=== PATIENT | male | born 1980 | race Asian ===

== ENCOUNTER → 2024-09-19 09:17 | Outpatient (CLI) | payer OTHER, SELFPAY ==
--- NOTE | 2024-09-19 09:19 | DI.MRI.S_ITS ---
PROCEDURE: MR LUMBAR SPINE WO CON INDICATIONS: low back pain TECHNIQUE: Noncontrast sagittal T1 spin echo and T2 fast echo, sagittal STIR, and T2 fast spin echo through the lumbar spine. In cases with scoliosis, additional coronal T2 fast spin echo may be performed. COMPARISON: None. FINDINGS: Image quality: Excellent. Alignment and Curvature: No plain films are available for comparison, for numbering purposes. Thus, for the purposes of this examination, 5 lumbar type vertebral bodies will be presumed, as denoted on the montage panel. This should be confirmed and correlated with plain films, prior to any lumbar spinal intervention. Bone Marrow: Marrow is of normal overall signal. No acute vertebral body compression fractures. Spinal Cord: Conus medullaris terminates at the mid L1 level. Visualized cord demonstrates normal signal and size. Paraspinous Soft Tissues: No paravertebral masses. T12-L1: Normal appearance. L1-L2: Normal appearance. L2-L3: Mild disc desiccation and diffuse disc bulge. Mild bilateral facet hypertrophy. Mild epidural lipomatosis. Mild canal stenosis. Mild bilateral foraminal stenosis. L3-L4: Normal appearance. L4-L5: Mild disc desiccation and diffuse disc bulge. Mild bilateral facet hypertrophy. Mild canal stenosis. Moderate left and mild right foraminal stenosis. L5-S1: Normal appearance. IMPRESSION: 1. Multilevel degenerative disc and facet disease. 2. Mild multilevel canal stenosis. 3. Multilevel mild and moderate foraminal stenoses as described above. No evidence of neural impingement. Dictated by: Emma Duran M.D. on 09/19/2024 at 12:41 Approved by: Emma Duran M.D. on 09/19/2024 at 12:43
== END ==
DX: M51.369 Other intervertebral disc degeneration, lumbar region without mention of lumbar back pain or lower extremity pain (principal); M48.061 Spinal stenosis, lumbar region without neurogenic claudication; M47.816 Spondylosis without myelopathy or radiculopathy, lumbar region; M54.50 Low back pain, unspecified
CPT/HCPCS: 72148

== ENCOUNTER 2025-02-23 11:49 | Emergency (ER) | payer OTHER, SELFPAY ==
[2025-02-23] VITALS (7 sets, daily range): BP systolic 132–212; BP diastolic 76–119; PULSE 81–90; RESP 16–20; TEMP 37; O2SAT 95–99; BMI 28.7
--- NOTE | 2025-02-23 12:23 | ED_ITS ---
HPI - Headache <Shari Cai PA-C - Last Filed: 02/23/25 18:24> General Chief Complaint: Headache Stated Complaint: headache Time Seen by Provider: 02/23/25 11:58 Mode of arrival: EMS History of Present Illness HPI Narrative: This is a 44-year-old male with Mandarin as 1st language who reports history of chronic low back pain related to an injury a year ago presenting today with concern for a headache that has been present since Wednesday afternoon. Patient states on Wednesday he was doing a job cutting some furniture outside using power tools he was not wearing a mask or eye protection. He does think it is possible he got some dust in his eyes and he states he was driving to [place] later that day and he felt like it was hard to get a full breath in for awhile and there was something constricting his breathing. This improved with rolling down the window and did not return although he states he has had a cough all week since. He also notes that his headache has been constant but sometimes worse up to a 9/10 currently a 6/10. He describes it as a global headache but more in the front and is worse with movement such as leaning forward, sometimes having a sensation of liquid moving. He also states that he has had some tingling in his fingers only his thumb 1st and middle finger of the right hand since Wednesday evening as well. Yesterday and the day prior their were a few times when he noticed some ?squiggly lines in his vision up close but his distance vision was not affected. This did not persist or return and he denies other vision changes. He also states that he had dental surgery in his right lower jaw on Wednesday and they were hesitant to do the surgery because his blood pressure was elevated into the 160s systolic. They ended up using a different numbing medication than they had originally planned and proceeded with the surgery. He states he had his 2nd dental surgery scheduled on , yesterday and had a cap placed on his tooth, but also describes having a screw placed deep into his jaw but states that they left the tooth itself in place he does state that his headache worsened after his 1st surgery on Wednesday. Patient does endorse he has had a mild cough all week and also states that Wednesday and Wednesday at night he was having to blow his nose and had a lot of thick mucus coming out. Patient presented to the walk-in clinic at [facility] yesterday where he was treated with 1 g of Tylenol and Toradol he states his headache did improve but returned in the middle of the night much worse. He has not taken any medicine since. He had 1 episode of vomiting today. He also denies chest pain, shortness of breath, productive cough, one-sided weakness, gait change, speech change, sore throat, ear pain or other symptoms. Related Data Previous Rx's ?Medication ?Instructions ?Recorded amoxicillin 875 mg-potassium 1 tab PO Q12H bacterial s inusitis 02/23/25 clavulanate 125 mg tablet 10 days #20 tabs lisinopril 10 mg tablet 10 mg PO DAILY new onset HTN 30 02/23/25 days #30 tabs Allergies Allergy/AdvReac Type Severity Reaction Status Date / Time No Known Drug Allergies Allergy Verified 02/23/25 12:04 Review of Systems <Shari Cai PA-C - Last Filed: 02/23/25 18:24> Review of Systems Narrative: See HPI Patient History <Shari Cai PA-C - Last Filed: 02/23/25 18:24> Social History Smoking Status: Never smoker Smoking Status: Never smoker Exam <Shari Cai PA-C - Last Filed: 02/23/25 18:24> Narrative Exam Narrative: GENERAL: [44] year old patient appears stated age. Well-developed patient, in mild distress, slightly anxious/uncomfortable appearing. HEAD: Atraumatic. Normocephalic. EYES: Pupils equal round and reactive. Extraocular motions intact and pain-free. No scleral icterus. No injection or drainage. ENT: Nose without bleeding, purulent drainage. There is mild erythema of the left ear canal. Throat without erythema, tonsillar hypertrophy or exudate, uvula is midline. Airway patent. Bilateral frontal and maxillary sinuses are tender to percussion most pronounced over the frontal sinuses and left maxillary. NECK: Trachea midline. Non tender CARDIOVASCULAR: Regular rate and rhythm without murmurs, gallops, or rubs. RESPIRATORY: Clear to auscultation. Breath sounds equal bilaterally. No wheezes, rales, or rhonchi. GASTROINTESTINAL: Abdomen soft, non-tender, nondistended. EXTREMITIES: No edema or joint tenderness. BACK: Nontender without deformity or crepitance. No flank tenderness. NEURO: AOx3. 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 SKIN: No rash or erythema of visible areas Initial Vital Signs Initial Vital Signs: Vital Signs Pulse Rate 88 02/23/25 12:04 Respiratory Rate 18 02/23/25 12:04 Blood Pressure 170/107 H 02/23/25 12:04 Pulse Oximetry 99 02/23/25 12:04 Oxygen Delivery Method Room Air 02/23/25 12:04 <Shani Diggs MD - Last Filed: 02/23/25 18:42> Initial Vital Signs Initial Vital Signs: Vital Signs Pulse Rate 88 02/23/25 12:04 Respiratory Rate 18 02/23/25 12:04 Blood Pressure 170/107 H 02/23/25 12:04 Pulse Oximetry 99 02/23/25 12:04 Oxygen Delivery Method Room Air 02/23/25 12:04 Scores <Shari Cai PA-C - Last Filed: 02/23/25 18:24> HEART Score Heart Score history: Slightly Suspicious Heart Score EKG: Normal Heart Score Age: < 45 years old Heart Score risk factors: 1-2 risk factors Heart Score troponin: < or = to normal limit Heart Score Total: 1 <Shani Diggs MD - Last Filed: 02/23/25 18:42> HEART Score Heart Score Total: 1 Course <Shari Cai PA-C - Last Filed: 02/23/25 18:24> Course Course Narrative: I spoke with the attending physician regarding this patient and despite his improvement in blood pressure since he came in she does recommend a head CT. Concerned for hypertensive urgency. Noncontrast head CT ordered. 1244 IOPs 15 on the R eye and a4 on the L eye. Fluorescein exam without uptake or abrasion seen 1305 Spoke with the patient again and shared CT results and lab results. He is agreeable with plan to start antihypertensive and antibiotics for sinus infection. 1435 Orders Ordered: ED Orders 02/23/25 12:16 Complete Blood Count AUTO DIFF Stat Comprehensive Metabolic Panel Stat NT-proBNP (BNP-Adult 18+) Stat Troponin I Stat 02/23/25 12:21 Covid-19 + FLU A/B + RSV - PCR Stat 02/23/25 12:29 XR chest 1V Stat [facility] Creatine Kinase MB Routine 02/23/25 12:32 EKG-12 Lead Routine 02/23/25 12:43 CT head/brain wo con Stat 02/23/25 15:01 Urinalysis and Microscopic Stat Discontinued Medications Acetaminophen (Acetaminophen 325 Mg Tablet) 975 mg PO NOW ONE Stop: 02/23/25 13:07 Last Admin: 02/23/25 13:11 Dose: 975 mg Documented By: HANANE Dexamethasone (Dexamethasone 10 Mg/Ml Vial) 10 mg PO NOW ONE Stop: 02/23/25 14:40 Last Admin: 02/23/25 14:47 Dose: 10 mg Documented By: MONSTER Fluorescein Sodium (Fluorescein 1 Mg Strip) 1 mg EYE-BOTH NOW ONE Stop: 02/23/25 12:49 Last Admin: 02/23/25 12:54 Dose: 1 mg Documented By: HANANE Lisinopril (Lisinopril 10 Mg Tablet) 10 mg PO NOW ONE Stop: 02/23/25 14:42 Last Admin: 02/23/25 14:48 Dose: 10 mg Documented By: MONSTER Proparacaine HCl (Proparacaine 0.5% Ophth Dorene) 1 drops EYE-BOTH NOW ONE Stop: 02/23/25 12:33 Last Admin: 02/23/25 12:54 Dose: 1 drops Documented By: HANANE Vital Signs Vital signs: Vital Signs - 8 hr 02/23/25 12:04 02/23/25 12:23 02/23/25 12:43 Temperature 98.6 F Pulse Rate 88 83 82 Respiratory Rate 18 16 Blood Pressure 170/107 H 154/101 H 157/104 H Pulse Oximetry 99 97 97 Oxygen Delivery Method Room Air 02/23/25 13:12 02/23/25 13:12 02/23/25 14:48 Temperature Pulse Rate 84 90 81 Respiratory Rate 18 Blood Pressure 152/83 H 212/119 H 174/119 H Pulse Oximetry 97 Oxygen Delivery Method 02/23/25 14:50 02/23/25 15:15 Temperature Pulse Rate 82 85 Respiratory Rate 20 16 Blood Pressure 182/110 H 132/76 Pulse Oximetry 97 95 Oxygen Delivery Method Room Air Room Air <Shani Diggs MD - Last Filed: 02/23/25 18:42> Orders Ordered: ED Orders 02/23/25 12:16 Complete Blood Count AUTO DIFF Stat Comprehensive Metabolic Panel Stat NT-proBNP (BNP-Adult 18+) Stat Troponin I Stat 02/23/25 12:21 Covid-19 + FLU A/B + RSV - PCR Stat 02/23/25 12:29 XR chest 1V Stat [facility] Creatine Kinase MB Routine 02/23/25 12:32 EKG-12 Lead Routine 02/23/25 12:43 CT head/brain wo con Stat 02/23/25 15:01 Urinalysis and Microscopic Stat Discontinued Medications Acetaminophen (Acetaminophen 325 Mg Tablet) 975 mg PO NOW ONE Stop: 02/23/25 13:07 Last Admin: 02/23/25 13:11 Dose: 975 mg Documented By: HANANE Dexamethasone (Dexamethasone 10 Mg/Ml Vial) 10 mg PO NOW ONE Stop: 02/23/25 14:40 Last Admin: 02/23/25 14:47 Dose: 10 mg Documented By: MONSTER Fluorescein Sodium (Fluorescein 1 Mg Strip) 1 mg EYE-BOTH NOW ONE Stop: 02/23/25 12:49 Last Admin: 02/23/25 12:54 Dose: 1 mg Documented By: HANANE Lisinopril (Lisinopril 10 Mg Tablet) 10 mg PO NOW ONE Stop: 02/23/25 14:42 Last Admin: 02/23/25 14:48 Dose: 10 mg Documented By: MONSTER Proparacaine HCl (Proparacaine 0.5% Ophth Dorene) 1 drops EYE-BOTH NOW ONE Stop: 02/23/25 12:33 Last Admin: 02/23/25 12:54 Dose: 1 drops Documented By: HANANE Vital Signs Vital signs: Vital Signs - 8 hr 02/23/25 12:04 02/23/25 12:23 02/23/25 12:43 Temperature 98.6 F Pulse Rate 88 83 82 Respiratory Rate 18 16 Blood Pressure 170/107 H 154/101 H 157/104 H Pulse Oximetry 99 97 97 Oxygen Delivery Method Room Air 02/23/25 13:12 02/23/25 13:12 02/23/25 14:48 Temperature Pulse Rate 84 90 81 Respiratory Rate 18 Blood Pressure 152/83 H 212/119 H 174/119 H Pulse Oximetry 97 Oxygen Delivery Method 02/23/25 14:50 02/23/25 15:15 Temperature Pulse Rate 82 85 Respiratory Rate 20 16 Blood Pressure 182/110 H 132/76 Pulse Oximetry 97 95 Oxygen Delivery Method Room Air Room Air MDM - Headache <Shari Cai PA-C - Last Filed: 02/23/25 18:24> Differential Diagnosis Differential diagnosis: Likely migraine, tension headache, headache, sinusitis and other (hypertensive urgency, new onset hypertension) Medical Records Attestation: I reviewed the patient's medical records. Lab Data Attestation: I reviewed the patient's lab results. 02/23/25 12:16 02/23/25 12:16 Labs: Lab Results 02/23/25 02/23/25 02/23/25 Range/Units 12:16 12:21 15:01 WBC 4.3 L (4.5-11.0) X10^3/uL RBC 5.63 (4.5-5.9) X10^6/uL Hgb 16.2 (13.5-17.5) g/dL Hct 48.1 (41-53) % MCV 85.4 (80-100) fL MCH 28.7 (26-34) PG MCHC 33.6 (30-36) % RDW 13.0 (11.6-14.8) % Plt Count 222 (150-400) X10^3/uL Neut % (Auto) 53.3 (50-75) % Lymph % (Auto) 35.5 (25-40) % [place] % (Auto) 7.6 (3-14) % Eos % (Auto) 2.7 (2-4) % Baso % (Auto) 0.9 (0-2) % Neut # (Auto) 2300 (5217-7596) /uL Lymph # (Auto) 1500 (8917-0387) /uL [place] # (Auto) 300 (0-900) /uL Eos # (Auto) 100 (0-450) /uL Baso # (Auto) 0 (0-100) /uL Sodium 139 (137-145) mmol/L Potassium 3.9 (3.4-5.1) mmol/L Chloride 104 (98-107) mmol/L Carbon Dioxide 23 (22-32) mmol/L BUN 17 (9-20) mg/dL Creatinine 1.11 (0.66-1.25) mg/dL Estimated GFR > 60 (>60) mL/min BUN/Creatinine Ratio 15.3 (6-22) Glucose 108 H (70-99) mg/dL Calcium 9.5 (8.4-10.2) mg/dL Total Bilirubin 0.6 (0.2-1.3) mg/dL AST 33 (17-59) IU/L ALT 32 (<50) IU/L Alkaline Phosphatase 68 (38-126) U/L Troponin I < 0.012 (0.01-0.034) ng/mL NT-Pro-B Natriuret Pep < 20 (<125) pg/mL Total Protein 8.6 H (6.3-8.2) g/dL Albumin 5.1 H (3.5-5.0) g/dL Globulin 3.5 (1.7-4.1) g/dL Albumin/Globulin Ratio 1.5 (1.0-2.8) Urine Color Yellow Urine Appearance Clear Urine pH 6.0 (4.5-8.0) Ur Specific [place] 1.020 (1.000-1.035) Urine Protein Negative (Negative) Urine Glucose (UA) Negative (Negative) g/dL Urine Ketones Negative (NEGATIVE) Urine Occult Blood Negative (Negative) Urine Nitrate Negative (Negative) Urine Bilirubin Negative (NEGATIVE) Urine Urobilinogen 0.2 (0.2) E.U./dL Ur Leukocyte Esterase Negative (NEGATIVE) Urine RBC None seen (0-5/HPF) Urine WBC None seen (0-5/HPF) Ur Squamous Epith Cells None seen (0-5/HPF) Urine Bacteria None seen (None) Ur Culture Indicated? Cult not indicated Vol Urine Centrifuged 10ml (spun) SARS-CoV-2 (PCR) Negative (Negative) Influenza A (RT-PCR) Flu a negative (NEGATIVE) Influenza B (RT-PCR) Flu b negative (NEGATIVE) RSV (PCR) Negative (Negative) Urine Dip Bedside Urine Glucose Negative Bedside Urine Bilirubin - Negative Bedside Urine Ketone - Negative Urine Specific [place] 1.015 Bedside Urine Occult Blood - Negative Bedside Urine pH 6 Bedside Urine Protein - Negative Bedside Urine Urobilinogen - Negative Bedside Urine Nitrite - Negative Bedside Urine Leukocytes - Negative Esterase Imaging Data Chest x-ray: My Impression: Agree with Radiology interpretation Radiologist's Impression: [address] [address] XRay Report Signed Patient: Basilio Hanna MR#: [id number] : 1980 Acct:[id number] Age/Sex: 44 / M Date of Service: 02/23/25 Loc: ED Accession Number: [id number] Procedure: XR chest 1V Ordering Provider: Shari Cai PA-C PROCEDURE: XR CHEST 1V INDICATIONS: cough, recent chest tightness TECHNIQUE: One view of the chest was acquired. COMPARISON: None. FINDINGS: Surgical changes and devices: None. Lungs and pleura: Lungs are clear. No pleural effusions or pneumothorax. Mediastinum: Mediastinal contours appear normal. Heart size is normal. Bones and chest wall: No suspicious bony lesions. Overlying soft tissues appear unremarkable. IMPRESSION: No acute cardiopulmonary abnormality is seen. Dictated by: Sincere Atkins M.D. on 02/23/2025 at 13:04 Approved by: Sincere Atkins M.D. on 02/23/2025 at 13:05 CT scan - head: My Impression: Agree with Radiology interpretation Radiologist's Impression: [address] [address] [address] Scan Report Signed Patient: Basilio Hanna MR#: [id number] : 1980 Acct:[id number] Age/Sex: 44 / M Date of Service: 02/23/25 Loc: ED Accession Number: [id number] Procedure: CT head/brain wo con Ordering Provider: Shari Cai PA-C PROCEDURE: CT HEAD/BRAIN WO CON INDICATIONS: Headache x 5 D. HTN TECHNIQUE: Noncontrast 4.5 mm thick angled axial sections acquired from the foramen magnum to the vertex, with coronal and sagittal reformats. For radiation dose reduction, the following was used: automated exposure control, adjustment of mA and/or kV according to patient size. COMPARISON: None. FINDINGS: Image quality: Diagnostic. CSF spaces: Basal cisterns are patent. No extra-axial fluid collections. Ventricles are normal in size and shape. Brain: No midline shift. No intracranial mass effect or hemorrhage. [place]- white matter interface is normal. Skull and face: Calvarium and visualized facial bones are intact, without suspicious lesions. Sinuses: Visualized sinuses and mastoids are clear except for mild mucosal thickening involving the ethmoid air cell and [id number] mucosal thickening involving the left maxillary sinus.. IMPRESSION: No brain parenchymal abnormality or intracranial hemorrhage is seen. Mild chronic appearing sinusitis involving the ethmoid air cells and the left maxillary sinus. Dictated by: Lamine Perea M.D. on 02/23/2025 at 13:15 Approved by: Lamine Perea M.D. on 02/23/2025 at 13:16 ECG Data Attestation: I personally reviewed and interpreted this ECG as follows: Interpretation: Normal sinus rhythm with sinus arrhythmia, heart rate 86, T-wave inversions V1, intervals within normal limits QTC 428 Treatment and disposition Shared decision making:: Shared decision-making was used in determining plan for evaluation today in the emergency department and plan for new medications. MDM Narrative Medical decision making narrative: This is a 44-year-old male presenting with concern for headache since Wednesday after using power tools to cut up furniture. Also complained of chest tightness Wednesday afternoon, tingling in the thumb index and middle finger of right hand on and off since Wednesday, squiggly lines in his vision a few times in the last 2 days and high blood pressure since Wednesday when he was seen at dentist office with blood pressures in the 160s systolic. Patient also endorsed a mild cough all week. His initial presentation was concerning for hypertensive urgency with a blood pressure of approx 211/110 on ED presentation which quickly improved but he remained hypertensive throughout his ED stay. Cardiac workup pursued given his HTN, hand tingling and report of chest discomfort earlier this week. This returned unremarkable and HEART Score was 1. Cardiac labs as well as CBC, CMP and UA were all unremarkable. Chest x-ray showed no pneumonia or other cardiopulmonary abnormality. Viral testing for COVID flu and RSV was negative. Did discuss the patient early on in his care with attending physician Dr. Diggs who recommended noncontrast head CT and start on lisinopril for new onset hypertension/hypertensive urgency. We discussed utilizing a beta-umair in the ER initially however he did have improvement in blood pressures down to 150 systolic and was not persistently elevated over 180 systolic though his diastolic was consistently around 100. Considered fall treatment for migraine however no history of migraines, he received Toradol yesterday in walk-in clinic and disprefers having this again. Also, suspect his headache is combination of sinus infection and hypertensive urgency. His CT scan returned unremarkable except for evidence of possibly chronic sinusitis. Given that his exam and history were also suspicious/consistent with bacterial sinus infection he was treated with Augmentin 10 day course. As he has been hypertensive over multiple days at multiple doctor visits including dentist office Wednesday and and walk-in clinic (yesterday) as well as today in the ER after discussion with the patient he was started on lisinopril 10 mg daily. Some chance that his hypertension is related to pain and discomfort related to a sinus infection however with persistently elevated blood pressures today and elevated blood pressures on Wednesday and at the dentist as well as yesterday at his walk-in clinic visit in addition to his other symptoms most suspicious for hypertensive urgency/new onset hypertension--reviewed the paperwork from [facility]. He has a follow up visit with his PCP on the 27 of February. He is advised to seek re-evaluation if he has persistent symptoms, or worsening/new symptoms. He is encouraged to pursue regular cardiovascular exercise once his blood pressures are better controlled, and work on reducing stress levels and modifying diet--discuss these with PCP. He received 975 mg of Tylenol today in the ER, declined Toradol and also received 10 mg of dexamethasone oral. Blood pressure and headache improved at time of discharge. Return precautions provided, follow-up plan discussed, all questions answered. <Shani Diggs MD - Last Filed: 02/23/25 18:42> Lab Data Labs: Lab Results 02/23/25 02/23/25 02/23/25 Range/Units 12:16 12:21 15:01 WBC 4.3 L (4.5-11.0) X10^3/uL RBC 5.63 (4.5-5.9) X10^6/uL Hgb 16.2 (13.5-17.5) g/dL Hct 48.1 (41-53) % MCV 85.4 (80-100) fL MCH 28.7 (26-34) PG MCHC 33.6 (30-36) % RDW 13.0 (11.6-14.8) % Plt Count 222 (150-400) X10^3/uL Neut % (Auto) 53.3 (50-75) % Lymph % (Auto) 35.5 (25-40) % [place] % (Auto) 7.6 (3-14) % Eos % (Auto) 2.7 (2-4) % Baso % (Auto) 0.9 (0-2) % Neut # (Auto) 2300 (8984-9874) /uL Lymph # (Auto) 1500 (8395-0289) /uL [place] # (Auto) 300 (0-900) /uL Eos # (Auto) 100 (0-450) /uL Baso # (Auto) 0 (0-100) /uL Sodium 139 (137-145) mmol/L Potassium 3.9 (3.4-5.1) mmol/L Chloride 104 (98-107) mmol/L Carbon Dioxide 23 (22-32) mmol/L BUN 17 (9-20) mg/dL Creatinine 1.11 (0.66-1.25) mg/dL Estimated GFR > 60 (>60) mL/min BUN/Creatinine Ratio 15.3 (6-22) Glucose 108 H (70-99) mg/dL Calcium 9.5 (8.4-10.2) mg/dL Total Bilirubin 0.6 (0.2-1.3) mg/dL AST 33 (17-59) IU/L ALT 32 (<50) IU/L Alkaline Phosphatase 68 (38-126) U/L Troponin I < 0.012 (0.01-0.034) ng/mL NT-Pro-B Natriuret Pep < 20 (<125) pg/mL Total Protein 8.6 H (6.3-8.2) g/dL Albumin 5.1 H (3.5-5.0) g/dL Globulin 3.5 (1.7-4.1) g/dL Albumin/Globulin Ratio 1.5 (1.0-2.8) Urine Color Yellow Urine Appearance Clear Urine pH 6.0 (4.5-8.0) Ur Specific [place] 1.020 (1.000-1.035) Urine Protein Negative (Negative) Urine Glucose (UA) Negative (Negative) g/dL Urine Ketones Negative (NEGATIVE) Urine Occult Blood Negative (Negative) Urine Nitrate Negative (Negative) Urine Bilirubin Negative (NEGATIVE) Urine Urobilinogen 0.2 (0.2) E.U./dL Ur Leukocyte Esterase Negative (NEGATIVE) Urine RBC None seen (0-5/HPF) Urine WBC None seen (0-5/HPF) Ur Squamous Epith Cells None seen (0-5/HPF) Urine Bacteria None seen (None) Ur Culture Indicated? Cult not indicated Vol Urine Centrifuged 10ml (spun) SARS-CoV-2 (PCR) Negative (Negative) Influenza A (RT-PCR) Flu a negative (NEGATIVE) Influenza B (RT-PCR) Flu b negative (NEGATIVE) RSV (PCR) Negative (Negative) Urine Dip Bedside Urine Glucose Negative Bedside Urine Bilirubin - Negative Bedside Urine Ketone - Negative Urine Specific [place] 1.015 Bedside Urine Occult Blood - Negative Bedside Urine pH 6 Bedside Urine Protein - Negative Bedside Urine Urobilinogen - Negative Bedside Urine Nitrite - Negative Bedside Urine Leukocytes - Negative Esterase Discharge Plan Departure Patient Disposition: Home Clinical Impression: Hypertensive urgency, Bacterial sinusitis Hypertension Qualifiers: Hypertension type: unspecified Qualified Code(s): I10 - Essential (primary) hypertension Instructions: Essential Hypertension, DI for Sinus Headache Activity Restrictions/Additional Instructions: *You have been diagnosed with [hypertension, bacterial sinus infection, hypertensive urgency] *What to do: *Please continue to take your regular medications as directed. [ 2] New medication prescriptions sent to your pharmacy: [Lisinopril (for blood pressure), Augmentin (for sinus infection)] [ ] New medication written as a paper prescription [ ] No new medications given *Please follow up with your primary care provider in 2-3 days, call for an appointment. Let them know you were seen in the Emergency Department and that we ask that you be seen in follow up. We will electronically transmit a record of today's note if your PCP is in our system. You came in today with concern for a bad headache and high blood pressures this week. Because you had high readings at your dentist this week and also yesterday at the walk-in clinic as well as today all day in the emergency department this does look like you have hypertension. As we discussed there can be some lifestyle modifications to help with this such as dietary or exercise changes and reducing stress levels you can talk to your primary care provider more about this. But based on your blood pressure readings over multiple days and your symptoms it was important to start you on blood pressure medication today to start to get your blood pressure better controlled. I have sent in a prescription for lisinopril 10 mg daily. I would like you to purchase a blood pressure cuff preferably 1 that goes around your whole upper arm but a wrist cuff is okay. Please take your blood pressure once daily at the same time of day (morning) and make sure you write down the number that you get and bring this record to your primary care provider doctors appointment on February 27 next week. It is possible that some of your headache symptoms and mild vision change symptoms over the last few days is related to your high blood pressure. But a lot of your symptoms may be related to your sinus infection. Your exam and history were consistent with a bacterial sinus infection and they did also note on your CT scan today that it does look like you have a sinus infection. Your CT scan otherwise looks good. I have prescribed Augmentin, antibiotic for this sinus infection please take it for the full course of 10 days as prescribed. You may also take Tylenol and ibuprofen as you desire to help with pain but you should be feeling better after a few days of Augmentin. This antibiotic may upset your stomach if you can take probiotics or drink [place] or eat yogurt daily if this is okay for your digestive system this may be helpful to avoid stomach upset from the medication. I recommend you take this medication with food. If you develop any new or worsening symptoms or have no improvement of your symptoms I recommend you seek re-evaluation. Otherwise follow up with your primary care provider as planned on February 27. Today we gave you Tylenol and a medication talk called dexamethasone that is a anti-inflammatory that should help with your headache pain until the other medications begin to work. I have a work note for you to be off until you have had your primary care visit next week and return to work on Wednesday. *If you do not have a primary care provider please contact the [facility] Resource line at [phone]. They will ask some questions about your medical history and help get you set up with a doctor in the community. *Return to Emergency Department if you should have any new, worsening or concerning symptoms, such as [fever greater than 101 F, shaking chills, worsening pain, persistent vomiting or other bothersome symptoms] Prescriptions: New amoxicillin-pot clavulanate 875-125 mg tablet 1 tab PO Q12H 10 Days Qty: 20 0RF lisinopril 10 mg tablet 10 mg PO DAILY 30 Days Qty: 30 0RF Referrals: Provider,[place] [facility] [Primary Care Provider, Family Practice] Stand Alone Forms: Patient Portal/API, Work Release Note
--- NOTE | 2025-02-23 12:29 | DI.RAD.S_ITS ---
PROCEDURE: XR CHEST 1V INDICATIONS: cough, recent chest tightness TECHNIQUE: One view of the chest was acquired. COMPARISON: None. FINDINGS: Surgical changes and devices: None. Lungs and pleura: Lungs are clear. No pleural effusions or pneumothorax. Mediastinum: Mediastinal contours appear normal. Heart size is normal. Bones and chest wall: No suspicious bony lesions. Overlying soft tissues appear unremarkable. IMPRESSION: No acute cardiopulmonary abnormality is seen. Dictated by: Sincere Atkins M.D. on 02/23/2025 at 13:04 Approved by: Sincere Atkins M.D. on 02/23/2025 at 13:05
--- NOTE | 2025-02-23 12:32 | EKG_ITS ---
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
[2025-02-23 12:33] LABS: Add Manual Diff / Slide Review NO; Hematocrit 48.1 % (41-53); Hemoglobin 16.2 g/dL (13.5-17.5); Lymphocytes Absolute Auto 1500 /uL (1100-4500); Mean Corpuscular HGB Conc 33.6 % (30-36); Mean Corpuscular Hemoglobin 28.7 PG (26-34); Mean Corpuscular Volume 85.4 fL (80-100); Platelet Count 222 X10^3/uL (150-400)
--- NOTE | 2025-02-23 12:37 | PC.NURSE ---
Pt complaining of R hand numbness off and on recently. pt aox4. Strengths are equal
--- NOTE | 2025-02-23 12:43 | DI.CT.S_ITS ---
PROCEDURE: CT HEAD/BRAIN WO CON INDICATIONS: Headache x 5 D. HTN TECHNIQUE: Noncontrast 4.5 mm thick angled axial sections acquired from the foramen magnum to the vertex, with coronal and sagittal reformats. For radiation dose reduction, the following was used: automated exposure control, adjustment of mA and/or kV according to patient size. COMPARISON: None. FINDINGS: Image quality: Diagnostic. CSF spaces: Basal cisterns are patent. No extra-axial fluid collections. Ventricles are normal in size and shape. Brain: No midline shift. No intracranial mass effect or hemorrhage. [place]- white matter interface is normal. Skull and face: Calvarium and visualized facial bones are intact, without suspicious lesions. Sinuses: Visualized sinuses and mastoids are clear except for mild mucosal thickening involving the ethmoid air cell and [id number] mucosal thickening involving the left maxillary sinus.. IMPRESSION: No brain parenchymal abnormality or intracranial hemorrhage is seen. Mild chronic appearing sinusitis involving the ethmoid air cells and the left maxillary sinus. Dictated by: Lamine Perea M.D. on 02/23/2025 at 13:15 Approved by: Lamine Perea M.D. on 02/23/2025 at 13:16
[2025-02-23 12:49] LABS: Alanine Aminotransferase 32 IU/L (<50); Albumin 5.1 g/dL (3.5-5.0); Albumin Globulin Ratio 1.5 (1.0-2.8); Alkaline Phosphatase 68 U/L (38-126); Blood Urea Nitrogen 17 mg/dL (9-20); Calcium 9.5 mg/dL (8.4-10.2); Carbon Dioxide 23 mmol/L (22-32); Chloride 104 mmol/L (98-107); Estimated Glomerular Filt Rate > 60 mL/min (>60); Globulin 3.5 g/dL (1.7-4.1); Glucose 108 mg/dL (70-99); HEMOLYSIS < 15 (0-50); Potassium 3.9 mmol/L (3.4-5.1); Sodium 139 mmol/L (137-145); Total Protein 8.6 g/dL (6.3-8.2)
[2025-02-23] MEDS: PROPARACAINE 0.5% OPHTH SOL 1 DROPS EYE-BOTH (12:54)
[2025-02-23] MEDS: FLUORESCEIN 1 MG STRIP EYE-BOTH (12:54)
--- NOTE | 2025-02-23 12:55 | PC.NURSE ---
Pt at bedside for eye exam
[2025-02-23 13:02] LABS: NT-proBNP (BNP-Adult 18+) < 20 pg/mL (<125); Troponin I < 0.012 ng/mL (0.01-0.034)
--- NOTE | 2025-02-23 13:06 | PC.NURSE ---
pt back from CT. Denies needing anything at this time
[2025-02-23 13:11] LABS: Influenza A - CEPHEID Flu A NEGATIVE (NEGATIVE); Influenza B - CEPHEID Flu B NEGATIVE (NEGATIVE)
[2025-02-23] MEDS: ACETAMINOPHEN 325 MG TABLET 975 MG PO (13:11)
[2025-02-23 13:12] LABS: COVID-19 CEPHEID 4-PLEX PCR Negative (Negative)
[2025-02-23 15:28] LABS: Appearance Urine UA CLEAR; Bilirubin Urine UA NEGATIVE (NEGATIVE); Color Urine UA YELLOW; Glucose Urine UA NEGATIVE (Negative); Ketones Urine UA NEGATIVE (NEGATIVE); Leukocyte Esterase Urine UA NEGATIVE (NEGATIVE); Nitrite Urine UA NEGATIVE (Negative); Occult Blood Urine UA NEGATIVE (Negative); Protein Urine UA NEGATIVE (Negative); Specific Gravity Urine UA 1.020 (1.000-1.035); Urobilinogen Urine UA 0.2 E.U./dL (0.2); pH Urine UA 6.0 (4.5-8.0)
[2025-02-23 15:36] LABS: Culture Indicated Urine Cult Not Indicated
[2025-02-25 08:10] LABS: Labcorp Creatine Kinase MB <1.0 ng/mL (0.0-10.4)
== END 2025-02-23 15:27 | disposition home or self-care (01) ==
PROVIDERS: Emergency Provider Student in an Organized Health Care Education/Training Program
DX: I16.0 Hypertensive urgency (principal); J32.9 Chronic sinusitis, unspecified; I10 Essential (primary) hypertension; R05.9 Cough, unspecified
CPT/HCPCS: 70450; 71045; 80053; 81001; 81003; 82553; 83880; 84484; 85025; 87637; 93005; 93010; 99283; 99284; J1100